=== PATIENT | male | born 1995 ===

== ENCOUNTER 2016-07-13 20:49 | Emergency (ER) | payer OTHER ==
[2016-07-13 21:33] VITALS: BMI 21.9
[2016-07-13] MEDS ORDERED: Sodium Chloride 0.9% 1,000 ML IV STA (21:33)
[2016-07-13] MEDS ORDERED: Iohexol 240 (50 ml) PO ONE (21:33)
[2016-07-13 21:45] VITALS: BP 136/85; PULSE 78; RESP 18; TEMP 98.1; O2SAT 99
--- NOTE | 2016-07-13 21:49 | ED PDOC ---
HPI: Abdomen Time Seen by Provider: 07/13/16 21:45 Chief Complaint (Nursing): Groin Pain Chief Complaint (Provider): Groin Pain History Per: Patient History/Exam Limitations: no limitations Onset/Duration Of Symptoms: Days (2) Current Symptoms Are (Timing): Still Present Severity: Moderate Quality Of Discomfort: "Pain" Additional Complaint(s): Lars Bradley is a 20 y/o male presenting to the ER on 07/13/2016 with complaints of right groin pain x2 days. Patient reports pain originated after he lifted something heavy at work. He went to see his PMD today who referred him to be evaluated in the ED. Denies any similar episodes in the past. Pt reports mild dull pain at rest which is worse with lifting, or bending over. PT states he has a ball in the testicular area. Pt does not want anything for pain. Past Medical History Reviewed: Historical Data, Nursing Documentation, Vital Signs Vital Signs: Last Vital Signs Temp 98.1 F 07/13/16 21:42 Pulse 78 07/13/16 21:42 Resp 18 07/13/16 21:42 BP 136/85 07/13/16 21:42 Pulse Ox 99 07/13/16 21:57 - Medical History PMH: No Chronic Diseases - Surgical History Surgical History: No Surg Hx - Family History Family History: States: Unknown Family Hx - Social History Current smoker - smoking cessation education provided: No Alcohol: None Drugs: Denies - Immunization History Hx Tetanus Toxoid Vaccination: No Hx Influenza Vaccination: No Hx Pneumococcal Vaccination: No - Allergies Allergies/Adverse Reactions: Allergies Allergy/AdvReac Type Severity Reaction Status Date / Time No Known Allergies Allergy Verified 07/13/16 21:33 Review of Systems ROS Statement: Except As Marked, All Systems Reviewed And Found Negative Genitourinary Male: Positive for: Other ((+) right groin pain ) Neurological: Negative for: Weakness, Numbness Physical Exam - Reviewed Nursing Documentation Reviewed: Yes Vital Signs Reviewed: Yes - Physical Exam Appears: Positive for: Non-toxic, No Acute Distress Head Exam: Positive for: ATRAUMATIC, NORMOCEPHALIC Skin: Positive for: Normal Color, Warm, Dry Eye Exam: Positive for: Normal appearance, EOMI, PERRL Neck: Positive for: Normal, Painless ROM, Supple Gastrointestinal/Abdominal: Positive for: Normal Exam, Soft. Negative for: Tenderness Male Genital Exam: Positive for: other (unable to check for inguinal hernia due to large mass on right scrotum. mass has bowel sounds ) - ECG O2 Sat by Pulse Oximetry: 99 Medical Decision Making Medical Decision Makin:53 Initial Impression- Right Groin Pain & Mass on Right Scrotum Initial Plan- * Labs * CT Abdomen * Re-evaluate Endorsed at 0000 pending labs, CT and US. Documented by Mickey Arizmendi, acting as a scribe for Lizzeth Rogers PA-C All medical record entries made by the Scribe were at my direction and personally dictated by me. I have reviewed the chart and agree that the record accurately reflects my personal performance of the history, physical exam, medical decision making, and the department course for this patient. I have also personally directed, reviewed, and agree with the discharge instructions and disposition. Disposition - Clinical Impression Clinical Impression: Hernia - Patient ED Disposition Is Patient to be Admitted: Transfer of Care - Disposition Disposition: Transfer of Care Disposition Time: 23:17 Condition: GOOD
[2016-07-13 22:52] LABS: RBC URINE 1 /hpf (0-3); URINE BACTERIA FEW (<OCC); URINE BILIRUBIN NEGATIVE (NEGATIVE); URINE BLOOD NEGATIVE (NEGATIVE); URINE COLOR YELLOW (YELLOW); URINE GLUCOSE (UA) NEG (Normal); URINE KETONE NEGATIVE (NEGATIVE); URINE LEUKOCYTE ESTERASE NEG Leu/uL (Negative); URINE PROTEIN NEGATIVE (NEGATIVE); URINE UROBILINOGEN 0.2-1.0 mg/dL (0.2-1.0); WBC URINE < 1 /hpf (0-5)
[2016-07-13 23:26] LABS: BASO % 0.2 % (0.0-2.0); EOS # 0.1 K/uL (0.0-0.7); EOS % 1.4 % (0.0-4.0); HEMATOCRIT 44.8 % (35.0-51.0); LYMPH # 1.9 K/uL (1.0-4.3); LYMPH % 41.1 % (20.0-40.0); MEAN CELL VOLUME 85.1 fl (80.0-94.0); MEAN CORPUSCULAR HEMOGLOBIN 28.4 pg (27.0-31.0); MEAN CORPUSCULAR HGB CONC 33.3 g/dL (33.0-37.0); MEAN PLATELET VOLUME 6.8 fl (7.2-11.7); MONO # 0.3 K/uL (0.0-0.8); NEUT # 2.4 K/uL (1.8-7.0); NEUT % 50.3 % (50.0-75.0); RED CELL DISTRIBUTION WIDTH 13.2 % (11.5-14.5); WHITE BLOOD COUNT 4.7 K/uL (4.8-10.8)
[2016-07-13 23:34] LABS: ALB/GLOB RATIO 1.4 (1.0-2.1); ALKALINE PHOSPHATASE 86 U/L (38-126); ALT/SGPT 29 U/L (21-72); AST/SGOT 25 U/L (17-59); BILIRUBIN,TOTAL 0.4 mg/dl (0.2-1.3); BLOOD UREA NITROGEN 10 mg/dl (9-20); CALCIUM 9.4 mg/dL (8.4-10.2); CARBON DIOXIDE 28 mmol/L (22-30); CHLORIDE 99 mmol/L (98-107); GFR AFRICAN-AMERICAN > 60; GLUCOSE,RANDOM 95 mg/dL (75-110); POTASSIUM 4.4 MMOL/L (3.6-5.0); SODIUM 140 mmol/l (132-148); TOTAL PROTEIN 7.8 G/DL (6.3-8.2)
--- NOTE | 2016-07-13 23:56 | ED PDOC ---
- Laboratory Results Result Diagrams: 07/13/16 23:19 07/13/16 23:19 - ECG O2 Sat by Pulse Oximetry: 99 Medical Decision Making Medical Decision Making: Case endorsed to chief underwriter from DIAZ Rogers at midnight pending US and re-eval HPI reviewed: Lars Bradley is a 20 y/o male presenting to the ER on 07/13/2016 with complaints of right groin pain x2 days. Patient reports pain originated after he lifted something heavy at work. He went to see his PMD today who referred him to be evaluated in the ED. Denies any similar episodes in the past. Pt reports mild dull pain at rest which is worse with lifting, or bending over. PT states he has a ball in the testicular area. Pt does not want anything for pain. CT IMPRESSION: There is fluid in the right inguinal canal. This measures approximately 9.6 x 4.3 cm in size. No bowel is seen within the right inguinal canal. If there is desire for further evaluation, a scrotal ultrasound could be performed US IMPRESSION: There is a large simple cystic collection in the right inguinal canal. Urologic consultation may be of benefit. Pt educates on results and demonstrated full understanding Pt doing well on re-eval, declined analgesics Given urology referral for follow up and strongly advised to return to ED if at anytime condition worsens Signs and symptoms of testicular torsion discussed at length Disposition - Clinical Impression Clinical Impression: Hernia, Testicular cyst - POA Present On Arrival: None - Disposition Referrals: Anthony Acevedo Jr., MD [Staff Provider] - Disposition: Routine/Home Disposition Time: 02:46 Condition: GOOD Prescriptions: Ibuprofen [Motrin] 600 mg PO Q6 #20 tab Instructions: Testicle Pain (ED)
[2016-07-14] MEDS ORDERED: Iohexol 300 100 ML IJ ONE (00:11)
[2016-07-14] MEDS ORDERED: Sodium Chloride 0.9% 50 ML IV ONE (00:11)
--- NOTE | 2016-07-14 11:02 | CT ---
PROCEDURE: CT abdomen pelvis dated 07/14/2016 HISTORY: Right sided hernia COMPARISON: No prior TECHNIQUE: Contiguous axial images of the abdomen and p pelvis performed following intravenous injection of approximately 95 cc Omnipaque 300 contrast material. . Coronal and Sagittal reformats generated. Radiation dose: Total exam DLP = 433.6 mGy-cm. This CT exam was performed using one or more of the following dose reduction techniques: Automated exposure control, adjustment of the mA and/or kV according to patient size, and/or use of iterative reconstruction technique. FINDINGS: LOWER THORAX: Lung bases clear. No infiltrate effusion or basilar pneumothorax. Tiny hiatal hernia. Heart size normal. No significant pericardial effusion. LIVER: Liver demonstrates normal size. Mild fatty hepatic infiltration. No obvious hepatic mass collection or calcification. . Portal and splenic veins are opacified. GALLBLADDER AND BILE DUCTS: Gallbladder is physiologically distended. No evidence of intraluminal gallbladder calculi. PANCREAS: Visualized portions of the pancreas appear grossly unremarkable. SPLEEN: Spleen exhibits normal size and attenuation pattern without mass collection or calcification. ADRENALS: No adrenal lesions. . KIDNEYS AND URETERS: The kidneys exhibit symmetric nephrograms. No evidence of nephrolithiasis or hydronephrosis. BLADDER: Urinary bladder is incompletely distended which presumably accounts for thick-walled appearance. Muscular hypertrophy may contribute. The possibility of a cystitis not excluded. REPRODUCTIVE: Prostate gland measures approximately 3.7 cm in transverse dimension. APPENDIX: What may represent a tiny partially contrast filled appendix best seen on coronal image number sign [id number]. No obvious inflammatory changes right lower quadrant of the abdomen BOWEL: Evaluation of the bowel is somewhat limited due to incomplete opacification. The stomach is incompletely distended which presumably accounts for mild thick-walled appearance. Gastritis not excluded. Other intrinsic/invasive wall lesion less likely in this age group but not completely excluded. Visualized loops of small bowel exhibit normal contour and caliber. No evidence acute mechanical small bowel obstruction with oral contrast material extending into the colon to the level of the distal descending/sigmoid colon junction. No definitive mural wall thickening. PERITONEUM: There is no evidence of free intraperitoneal air. No free or loculated fluid collections. There is a moderate to large teardrop shaped fluid collection (measuring approximately 10.2cm cc x 4.4cm AP x 4.56cm T) seen within the right inguinal canal becoming larger as it extends more inferiorly into the upper scrotal sac region. This collection is best appreciated on coronal series 601 image number [id number] and axial series 2 image number [id number]. . There is no bowel present within not right inguinal canal. Consider followup scrotal ultrasound for further evaluation. LYMPH NODES: Unremarkable. No enlarged lymph nodes. VASCULATURE: Unremarkable. No aortic aneurysm. BONES: No fracture or destructive lesion. OTHER FINDINGS: None. IMPRESSION: Moderately large teardrop shaped fluid collection extending inferiorly from the right inguinal canal into the upper scrotal region. No bowel is present within the right inguinal canal Follow-up scrotal ultrasound recommended. Mild fatty hepatic infiltration.
--- NOTE | 2016-07-14 11:29 | US ---
HISTORY: right testicular mass, hernia TECHNIQUE: Realtime sonography through the scrotum with color and doppler flow. COMPARISON: Comparison is made to the previous same-day CT of the abdomen and pelvis with contrast FINDINGS: RIGHT TESTICLE: Measures 3.7 x 4.3 x 2 cm. Normal echotexture and flow. RIGHT EPIDIDYMIS: Epididymal head measures 0.8 cm. Grossly unremarkable appearance with normal flow. LEFT TESTICLE: Measures 3.1 x 3.8 x 2.2 cm. Normal echotexture and flow. LEFT EPIDIDYMIS: Epididymal head measures 0.81 cm. Grossly unremarkable appearance with normal flow. HYDROCELE: None. VARICOCELE: None. OTHER FINDINGS: There is fluid collection versus cyst versus right inguinal hernia contains fluid extending from the right inguinal canal to the right scrotum measures up to 5.1 x 2.6 x 5.2 centimeter. IMPRESSION: Fluid collection extending from the right inguinal region to the right scrotum likely represent right inguinal hernia contains fluid measures 5.2 centimeter in the largest diameter. Otherwise the testicles and the epididymis are grossly unremarkable.
== END 2016-07-14 02:52 | disposition home or self-care (01) ==
LOC: H.ER 20:49
DX: K46.9 Unspecified abdominal hernia without obstruction or gangrene (principal); N44.2 Benign cyst of testis; R10.30 Lower abdominal pain, unspecified